=== PATIENT | male | born 1975 | race Caucasian/White ===

== ENCOUNTER → 2019-07-31 | Outpatient (CLI) | payer BC ==
[~2019-07-31] VITALS: Ht 175.3 cm; Wt 108.9 kg
[~2019-07-31] MED LIST: HYDROCHLOROTHIA25 M2 PO; LISINOPRIL40 MG PO; PROTONIX40 M1 PO; XANAX 0.5 MG0.5 MG PO
[2019-07-31 11:39] VITALS: BP 142/79
[2019-07-31 12:19] LABS: HEMATOCRIT 42.5 % (42.0-52.0); HEMOGLOBIN 14.1 gm/dL (14.0-18.0); MCH 28.9 pg (26.0-34.0); MCHC 33.2 g/dL (28.0-37.0); MCV 86.9 fL (80.0-100.0); RBC 4.9 mil/uL (4.50-6.00); RDW 13.1 % (10.5-14.5); WBC 6.3 thou/uL (4.0-11.0)
[2019-07-31 12:26] LABS: CALCIUM 9.2 mg/dL (8.5-10.1); POTASSIUM 4.2 mmol/L (3.5-5.1)
--- NOTE | 2019-08-02 13:27 | EKG ---
[address] [address] ELECTROCARDIOGRAM REPORT Name: KAITLYNN VENEGAS Room #: REG CLRadha Benton#: [id number] Admission: 07/31/19 Attend Phys: Wade Oleary Discharge: Date of : 77 Report #: [id number] THIS REPORT FOR: //name// [facility] Test Date: 2019-07-31 Test Time: 11:41:40 Pat Name: KAITLYNN VENEGAS Department: Room: Gender: Sales Planner: Yenny DUNAWAY : 1975 Requested By: Wade Oleary Order Number: [id number] MD: Layo Momin Measurements Intervals Cornish Rate: 68 P: 12 MN: 172 QRS: 0 QRSD: 108 T: 21 QT: 405 QTc: 431 Interpretive Statements Sinus rhythm Abnormal R-wave progression, early transition Borderline ST elevation, anterolateral leads No previous ECG available for comparison Electronically Signed On 08-02-2019 13:27:29 CDT by Layo Momin [email or web address] <ELECTRONICALLY SIGNED> By: Layo Momin MD 08/02/19 1327 1141 1141 Layo Momin MD /KAVON
--- NOTE | 2019-08-12 09:50 | CATHLAB ---
[facility] [address] [place] [address] INVASIVE PROCEDURE REPORT Name: KAITLYNN VENEGAS Room #: REG Chetan#: [id number] Admission: 07/31/19 Attend Phys: Wade Engle Discharge: Date of : 77 Report #: [id number] THIS REPORT FOR: //name// APPROVED REPORT Study performed: 07/31/2019 12:02:29 Patient Details Patient Status: Out-Patient Room #: The patient is a 44 year-old male Event Personnel Wade Oleary Commercial Green Building Architect, Rahul Blanco RTR Scrub, Eldon Lockhart, Jacinta Garcia RN RN, Barbi Miller RTR Scrub Procedures Performed Left Heart Cath w/or w/o Coronaries [id number] [facility], supervision of conscious sedation Indication Chest pain Procedure Narrative The Right Groin^ was infiltrated with 1% Lidocaine subcutaneous anesthesia. A PINNACLE 4FR Sheath #[id number] sheath was inserted into the RFA^. Coronary angiography was performed using coronary diagnostic catheters. The right coronary system was accessed and visualized with a JR4 catheter. The left coronary system was accessed and visualized with a JL4 catheter. Left ventricular/Aortic Valve gradient assessed via catheter pullback. Hemostasis was obtained with manual pressure following sheath removal without any complications. The patient tolerated the procedure well and there were no complications associated with the procedure. Intraoperative Conscious Sedation Sedation start time: 12.37 Case end Time: 12.59 Versed 2 mg Fluoro Time: 2.80 minutes Dose: DAP 5793.00 cGycm2 1031 mGy Contrast Type and Amount: Omnipaque 20 ml Diagnostic Cath [facility] [address] [place] [address] INVASIVE PROCEDURE REPORT Name: KAITLYNN VENEGAS Room #: REG CL Kleber#: [id number] Admission: 07/31/19 Attend Phys: Wade Engle Discharge: Date of : 77 Report #: [id number] Left Main Left main is of normal origin and moderate size which bifurcates left anterior descending left circumflex. It is free of significant high-grade lesions. There is some mild distal concentric plaquing noted LAD Moderate caliber type II vessel which courses in the anterior interventricular sulcus. It rapidly tapers in its midportion towards the apex and terminating as a string at the apex. There is no significant high-grade lesion is noted. Diagonal 1 Small in significant size vessel Circumflex Moderate caliber vessel has an early marginal branches functions like a ramus intermedius. This is a small-caliber vessel without high-grade lesions. The circumflex and continues on desirous to moderate size second marginal branch which is free of high-grade disease and terminates as a small posterior wall vessel Right Coronary Moderate caliber vessel normal origin the procedures and AV groove. It gives rise to a small RV marginal branch. At the crux of the heart a small caliber posterior descending artery arises and then the terminal RCA consists of a moderate rapidly tapered and posterior lateral branch. No high-grade lesions are noted R PDA Small-caliber vessel without high-grade disease noted Left Ventriculography Left Ventriculography was not performed. Hemodynamics The aortic pressure is 146/98 mmHg with a mean of 124 mmHg. The left ventricular pressure is 157/6 mmHg with a mean of mmHg. The left ventricular end diastolic pressure is 23 mmHg. There was no gradient across the aortic valve upon pullback. Pullback from the left ventricle to the aorta revealed no gradient across the aortic valve. Conclusion 1. Essentially normal coronary arteries 2. Normal hemodynamics Recommendations Cardiac Risk Reduction Program <ELECTRONICALLY SIGNED> By: Wade Oleary MD 08/12/1950 9 9 Wade Oleary MD /INF
== END | disposition home or self-care (01) ==
LOC: CATH 10:55
PROVIDERS: Internal Medicine
DX: R07.9 Chest pain, unspecified (principal); I10 Essential (primary) hypertension; E78.5 Hyperlipidemia, unspecified; K21.9 Gastro-esophageal reflux disease without esophagitis; F41.9 Anxiety disorder, unspecified; Z87.891 Personal history of nicotine dependence; Z79.899 Other long term (current) drug therapy; Z98.890 Other specified postprocedural states